=== PATIENT | male | born 1990 | race American Indian/Alaskan Native ===

== ENCOUNTER 2017-08-31 13:15 | Emergency (ER) | payer OTHER ==
[2017-08-31 13:50] VITALS: BP 131/78
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
[2017-08-31] MEDS ORDERED: MOTRIN PO ONE (17:17)
== END 2017-08-31 17:30 | disposition home or self-care (01) ==
LOC: ED 13:15
DX: S16.1XXA Strain of muscle, fascia and tendon at neck level, initial encounter (principal); S39.012A Strain of muscle, fascia and tendon of lower back, initial encounter; S23.8XXA Sprain of other specified parts of thorax, initial encounter; Z88.6 Allergy status to analgesic agent; V89.2XXA Person injured in unspecified motor-vehicle accident, traffic, initial encounter; Y93.9 Activity, unspecified; Y99.9 Unspecified external cause status; Y92.410 Unspecified street and highway as the place of occurrence of the external cause
CPT/HCPCS: 99282